=== PATIENT | male | born 1980 | race Hispanic/Latino ===

== ENCOUNTER 2020-11-20 12:33 | Emergency (ER) | payer OTHER ==
--- NOTE | 2020-11-20 15:00 | Emergency Department Report ---
ED General Adult HPI - General Chief complaint: Chest Pain Stated complaint: CHEST PAIN/SOB Time Seen by Provider: 11/20/20 13:08 Source: patient Mode of arrival: Stretcher Limitations: No Limitations - History of Present Illness Initial comments: The patient presents to the emergency department the chief complaint of left- sided chest pain has been present since noon today. Patient denies any radiation of the chest pain describes it as sharp in nature. Patient states he was told 4 months ago that he had a blockage in his heart at a hospital in [place]. Patient states today is concerned that he has endocarditis because he is a IV drug user. 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 He also has a history of of T-cell lymphoma -: Sudden Location: chest Radiation: non-radiation Severity scale (0 -10): 10 Quality: sharp Consistency: constant Improves with: none Worsens with: none Associated Symptoms: denies other symptoms Treatments Prior to Arrival: none - Related Data Allergies Allergy/AdvReac Type Severity Reaction Status Date / Time No Known Allergies Allergy Unverified 11/20/20 13:02 ED Review of Systems ROS: Stated complaint: CHEST PAIN/SOB Other details as noted in HPI Comment: All other systems reviewed and negative Constitutional: denies: chills, fever Eyes: denies: eye pain, eye discharge, vision change ENT: denies: ear pain, throat pain Respiratory: denies: cough, shortness of breath, wheezing Cardiovascular: chest pain. denies: palpitations Endocrine: no symptoms reported Gastrointestinal: denies: abdominal pain, nausea, diarrhea Genitourinary: denies: urgency, dysuria Musculoskeletal: denies: back pain, joint swelling, arthralgia Skin: denies: rash, lesions Neurological: denies: headache, weakness, paresthesias Psychiatric: denies: anxiety, depression Hematological/Lymphatic: denies: easy bleeding, easy bruising ED Past Medical Hx - Past Medical History Previous Medical History?: Yes Hx Congestive Heart Failure: Yes Hx of Cancer: Yes Additional medical history: T cell lymphoma - Social History Smoking Status: Former Smoker Substance Use Type: Alcohol ED Physical Exam - General Limitations: No Limitations General appearance: alert, in no apparent distress - Head Head exam: Present: atraumatic, normocephalic - Eye Eye exam: Present: normal appearance - ENT ENT exam: Present: mucous membranes moist - Neck Neck exam: Present: normal inspection - Respiratory Respiratory exam: Present: normal lung sounds bilaterally. Absent: respiratory distress - Cardiovascular Cardiovascular Exam: Present: regular rate, normal rhythm. Absent: systolic murmur, diastolic murmur, rubs, gallop - GI/Abdominal GI/Abdominal exam: Present: soft, normal bowel sounds. Absent: distended, tenderness - Rectal Rectal exam: Present: deferred - Extremities Exam Extremities exam: Present: other (Patient has track martinez on upper extremities) - Back Exam Back exam: Present: normal inspection - Neurological Exam Neurological exam: Present: alert, oriented X3, CN II-XII intact. Absent: motor sensory deficit - Psychiatric Psychiatric exam: Present: normal affect, normal mood - Skin Skin exam: Present: warm, dry, intact, normal color. Absent: rash ED Course Vital Signs 11/20/20 11/20/20 11/20/20 13:02 13:38 13:57 Temperature 98.1 F Pulse Rate 79 76 Respiratory 18 23 Rate Blood Pressure Blood Pressure 131/87 141/91 [Right] O2 Sat by Pulse 99 100 100 Oximetry 11/20/20 11/20/20 11/20/20 14:00 14:01 15:00 Temperature Pulse Rate 83 75 Respiratory 17 17 17 Rate Blood Pressure 141/91 143/83 Blood Pressure [Right] O2 Sat by Pulse 99 100 97 Oximetry 11/20/20 17:00 Temperature Pulse Rate 82 Respiratory 18 Rate Blood Pressure 134/77 Blood Pressure [Right] O2 Sat by Pulse 97 Oximetry ED Medical Decision Making - Lab Data Result diagrams: 11/20/20 16:29 11/20/20 16:29 Lab Results 11/20/20 11/20/20 11/20/20 Range/Units 16:29 16:29 16:29 WBC 9.5 (4.5-11.0) K/mm3 RBC 4.79 (3.65-5.03) M/mm3 Hgb 14.7 (11.8-15.2) gm/dl Hct 42.6 (35.5-45.6) % MCV 89 (84-94) fl MCH 31 (28-32) pg MCHC 35 H (32-34) % RDW 12.9 L (13.2-15.2) % Plt Count 259 (140-440) K/mm3 Lymph % (Auto) 19.5 (13.4-35.0) % Lake % (Auto) 5.9 (0.0-7.3) % Eos % (Auto) 1.8 (0.0-4.3) % Baso % (Auto) 0.5 (0.0-1.8) % Lymph # (Auto) 1.9 (1.2-5.4) K/mm3 Lake # (Auto) 0.6 (0.0-0.8) K/mm3 Eos # (Auto) 0.2 (0.0-0.4) K/mm3 Baso # (Auto) 0.0 (0.0-0.1) K/mm3 Seg Neutrophils % 72.3 H (40.0-70.0) % Seg Neutrophils # 6.9 (1.8-7.7) K/mm3 ESR Cancelled PT 14.0 (12.2-14.9) Sec. INR 1.02 (0.87-1.13) APTT 29.0 (24.2-36.6) Sec. D-Dimer 196.59 (0-234) ng/mlDDU Sodium 137 (137-145) mmol/L Potassium 4.5 (3.6-5.0) mmol/L Chloride 100.5 (98-107) mmol/L Carbon Dioxide 27 (22-30) mmol/L Anion Gap 14 mmol/L BUN 10 (9-20) mg/dL Creatinine 0.8 (0.8-1.3) mg/dL Estimated GFR > 60 ml/min BUN/Creatinine Ratio 13 % Glucose 92 (75-100) mg/dL Lactic Acid (0.7-2.0) mmol/L Calcium 9.7 (8.4-10.2) mg/dL Total Bilirubin 0.50 (0.1-1.2) mg/dL AST 17 (5-40) units/L ALT 14 (7-56) units/L Alkaline Phosphatase 101 (35-129) units/L Troponin T < 0.010 (0.00-0.029) ng/mL C-Reactive Protein (0.00-1.30) mg/dL Total Protein 6.8 (6.3-8.2) g/dL Albumin 4.2 (3.9-5) g/dL Albumin/Globulin Ratio 1.6 % Lipase (13-60) units/L 11/20/20 11/20/20 11/20/20 Range/Units 16:29 16:29 16:29 WBC (4.5-11.0) K/mm3 RBC (3.65-5.03) M/mm3 Hgb (11.8-15.2) gm/dl Hct (35.5-45.6) % MCV (84-94) fl MCH (28-32) pg MCHC (32-34) % RDW (13.2-15.2) % Plt Count (140-440) K/mm3 Lymph % (Auto) (13.4-35.0) % Lake % (Auto) (0.0-7.3) % Eos % (Auto) (0.0-4.3) % Baso % (Auto) (0.0-1.8) % Lymph # (Auto) (1.2-5.4) K/mm3 Lake # (Auto) (0.0-0.8) K/mm3 Eos # (Auto) (0.0-0.4) K/mm3 Baso # (Auto) (0.0-0.1) K/mm3 Seg Neutrophils % (40.0-70.0) % Seg Neutrophils # (1.8-7.7) K/mm3 ESR PT (12.2-14.9) Sec. INR (0.87-1.13) APTT (24.2-36.6) Sec. D-Dimer (0-234) ng/mlDDU Sodium (137-145) mmol/L Potassium (3.6-5.0) mmol/L Chloride (98-107) mmol/L Carbon Dioxide (22-30) mmol/L Anion Gap mmol/L BUN (9-20) mg/dL Creatinine (0.8-1.3) mg/dL Estimated GFR ml/min BUN/Creatinine Ratio % Glucose (75-100) mg/dL Lactic Acid 0.90 (0.7-2.0) mmol/L Calcium (8.4-10.2) mg/dL Total Bilirubin (0.1-1.2) mg/dL AST (5-40) units/L ALT (7-56) units/L Alkaline Phosphatase (35-129) units/L Troponin T < 0.010 (0.00-0.029) ng/mL C-Reactive Protein 0.30 (0.00-1.30) mg/dL Total Protein (6.3-8.2) g/dL Albumin (3.9-5) g/dL Albumin/Globulin Ratio % Lipase 17 (13-60) units/L 11/20/20 Range/Units 17:37 WBC (4.5-11.0) K/mm3 RBC (3.65-5.03) M/mm3 Hgb (11.8-15.2) gm/dl Hct (35.5-45.6) % MCV (84-94) fl MCH (28-32) pg MCHC (32-34) % RDW (13.2-15.2) % Plt Count (140-440) K/mm3 Lymph % (Auto) (13.4-35.0) % Lake % (Auto) (0.0-7.3) % Eos % (Auto) (0.0-4.3) % Baso % (Auto) (0.0-1.8) % Lymph # (Auto) (1.2-5.4) K/mm3 Lake # (Auto) (0.0-0.8) K/mm3 Eos # (Auto) (0.0-0.4) K/mm3 Baso # (Auto) (0.0-0.1) K/mm3 Seg Neutrophils % (40.0-70.0) % Seg Neutrophils # (1.8-7.7) K/mm3 ESR 15 PT (12.2-14.9) Sec. INR (0.87-1.13) APTT (24.2-36.6) Sec. D-Dimer (0-234) ng/mlDDU Sodium (137-145) mmol/L Potassium (3.6-5.0) mmol/L Chloride (98-107) mmol/L Carbon Dioxide (22-30) mmol/L Anion Gap mmol/L BUN (9-20) mg/dL Creatinine (0.8-1.3) mg/dL Estimated GFR ml/min BUN/Creatinine Ratio % Glucose (75-100) mg/dL Lactic Acid (0.7-2.0) mmol/L Calcium (8.4-10.2) mg/dL Total Bilirubin (0.1-1.2) mg/dL AST (5-40) units/L ALT (7-56) units/L Alkaline Phosphatase (35-129) units/L Troponin T (0.00-0.029) ng/mL C-Reactive Protein (0.00-1.30) mg/dL Total Protein (6.3-8.2) g/dL Albumin (3.9-5) g/dL Albumin/Globulin Ratio % Lipase (13-60) units/L - EKG Data -: EKG Interpreted by Me EKG shows normal: sinus rhythm Rate: normal - Radiology Data Radiology results: report reviewed - Medical Decision Making Patient asked to leave AGAINST MEDICAL ADVICE I discussed my concerns and the potential pitfalls of or worsening of illness but the patient stated he was okay with this and would like to leave AMA paperwork signed Critical care attestation.: If time is entered above; I have spent that time in minutes in the direct care of this critically ill patient, excluding procedure time. ED Disposition Clinical Impression: Chest pain Disposition: LEFT AGAINST MED ADVICE Is pt being admited?: No Does the pt Need Aspirin: No Condition: Stable Instructions: Nonspecific Chest Pain, Adult Referrals: PRIMARY CARE, [Primary Care Provider] - 3-5 Days LAITH MITCHELL MD [Staff Physician] - 3-5 Days Forms: AMA Form Time of Disposition: 06:30 Heart Score - HEART Score History: Slightly suspicious EKG: Normal Age: < 45 Risk factors: 1-2 risk factors Troponin: < normal limit HEART Score: 1 - EKG Read Time Time EKG Completed: 00:00 EKG Read Time: 00:00
--- NOTE | 2020-11-20 15:15 | XRay Report ---
XR chest 1V ap INDICATION / CLINICAL INFORMATION: Chest Pain COMPARISON: None available. FINDINGS: SUPPORT DEVICES: None. HEART / MEDIASTINUM: No significant abnormality. LUNGS / PLEURA: Lungs are clear. Costophrenic sulci are sharp. No pneumothorax. ADDITIONAL FINDINGS: No significant additional findings. IMPRESSION: 1. No acute findings. Signer Name: Renato Reece MD Signed: 11/20/2020 3:10 PM Workstation Name: [id number]
[2020-11-20 16:54] LABS: Basophils % (Auto) 0.5 % (0.0-1.8); Eosinophils # (Auto) 0.2 K/mm3 (0.0-0.4); Eosinophils % (Auto) 1.8 % (0.0-4.3); Hematocrit 42.6 % (35.5-45.6); Hemoglobin 14.7 gm/dl (11.8-15.2); Lymphocytes # (Auto) 1.9 K/mm3 (1.2-5.4); Lymphocytes % (Auto) 19.5 % (13.4-35.0); Mean Corpuscular HGB Conc 35 % (32-34); Mean Corpuscular Volume 89 fl (84-94); Monocytes # (Auto) 0.6 K/mm3 (0.0-0.8); Monocytes % (Auto) 5.9 % (0.0-7.3); Platelet Count 259 K/mm3 (140-440); Red Blood Count 4.79 M/mm3 (3.65-5.03); Red Cell Distribution Width 12.9 % (13.2-15.2)
[2020-11-20 17:09] LABS: INR 1.02 (0.87-1.13)
[2020-11-20 17:16] LABS: Alanine Aminotransferase 14 units/L (7-56); Albumin 4.2 g/dL (3.9-5); BUN/Creatinine Ratio 13; Blood Urea Nitrogen 10 mg/dL (9-20); Calcium 9.7 mg/dL (8.4-10.2); Hemolysis Index 6
[2020-11-20 17:17] LABS: C-Reactive Protein 0.3 mg/dL (0.00-1.30)
[2020-11-20 18:57] VITALS: BP 142/89
--- NOTE | 2020-11-22 17:36 | Electrocardiograph Report ---
[facility] Test Date: 2020-11-20 Test Time: 15:45:50 Pat Name: STEVE VILLANUEVA Department: Room: Gender: M Sales Management Intern: KALLIE : 1980 Requested By: ANGELI CONWAY Order Number: [id number] Reading MD: Manohar Elizondo Measurements Intervals [place] Rate: 82 P: 49 W[place]: 172 QRS: 73 QRSD: 113 T: 27 QT: 378 QTc: 442 Interpretive Statements Sinus rhythm No previous ECG available for comparison Electronically Signed On 11-22-2020 17:35:50 EDT by Manohar Elizondo
== END 2020-11-20 18:55 | disposition left against medical advice (07) ==
LOC: ED 12:33
DX: R07.9 Chest pain, unspecified (principal); I50.9 Heart failure, unspecified; Z85.9 Personal history of malignant neoplasm, unspecified; Z87.891 Personal history of nicotine dependence
CPT/HCPCS: 36415; 71045; 80053; 82140; 83690; 84484; 85025; 85379; 85610; 85652; 85730; 86140; 87040; 93005; 99284